=== PATIENT | female | born 1955 | race Caucasian/White ===

== ENCOUNTER → 2017-04-27 | Outpatient (CLI) | payer OTHER ==
[~2017-04-27] MED LIST: CYCL10TA6 PO; FLUO10CA48 PO; PRLSR20 PO
--- NOTE | 2017-04-27 14:58 | DIAGNOSTIC IMAGING REPORT ---
SINUS CT WITHOUT CONTRAST CLINICAL HISTORY: Chronic sinusitis. COMPARISON STUDY: None. Technique: Helical axial images of the sinuses were obtained without IV contrast. Coronal reformats were viewed. A dose lowering technique was utilized adhering to the principles of ALARA. CT DOSE: 281.23 mGycm FINDINGS: Visualized portions of the intracranial contents are unremarkable on this unenhanced examination. There is no fluid within the mastoid air cells. Middle ears are clear. Ossicles are intact. Orbits are unremarkable. There is moderate S-shaped deviation of the nasal septum with moderate spur formation. No mass is identified within the sinuses or the nasal cavity. Major drainage pathways are patent. There is minimal mucosal thickening of the sinuses. A few secretions are present. There are no air-fluid levels. IMPRESSION: 1. Minimal mucosal thickening of the sinuses. Patent major drainage pathways. 2. Moderate S-shaped deviation of the nasal septum with spur formation. Electronically signed by: Peter Soler M.D. 04/27/2017 2:57 PM Dictated Date/Time: 04/27/2017 2:54 PM
== END | disposition home or self-care (01) ==
LOC: C.CTS 14:10
PROVIDERS: ATTEND Physician Assistant
DX: J32.9 Chronic sinusitis, unspecified (principal); J34.2 Deviated nasal septum; J34.89 Other specified disorders of nose and nasal sinuses